=== PATIENT | male | born 1960 | race Caucasian/White ===

== ENCOUNTER 2020-11-15 11:34 | Emergency (ER) | payer MEDICARE ==
[2020-11-15] MEDS ORDERED: Ketorolac Tromethamine 60 MG/2 ML VIAL ONE (11:55)
== END 2020-11-15 12:30 | disposition home or self-care (01) ==
LOC: BURERS 11:34
DX: S92.252A Displaced fracture of navicular [scaphoid] of left foot, initial encounter for closed fracture (principal); K21.9 Gastro-esophageal reflux disease without esophagitis; E78.5 Hyperlipidemia, unspecified; I10 Essential (primary) hypertension; Z79.899 Other long term (current) drug therapy; X58.XXXA Exposure to other specified factors, initial encounter
CPT/HCPCS: 25622; 96372; J1885

== ENCOUNTER 2023-12-26 17:25 | Emergency (ER) | payer MEDICARE ==
[2023-12-26] MEDS ORDERED: Ketorolac Tromethamine 60 MG/2 ML VIAL ONE (17:58)
== END 2023-12-26 18:07 | disposition home or self-care (01) ==
LOC: BURERS 17:25
DX: M62.830 Muscle spasm of back (principal); I10 Essential (primary) hypertension
CPT/HCPCS: 96372; 99283; J1885